=== PATIENT | female | born 1955 | race Asian ===

== ENCOUNTER 2018-02-03 18:48 | Emergency (ER) | payer BC ==
[~2018-02-03] VITALS: Ht 160 cm; Wt 54.4 kg
[~2018-02-03 18:48] MED LIST: LORAZEPAM0.5 MG PO
[2018-02-03 18:56] VITALS: Ht 160 cm; Wt 54.4 kg
[2018-02-03 20:08] VITALS: BP 111/80
== END 2018-02-03 20:08 | disposition home or self-care (01) ==
LOC: ED 18:48
DX: S01.81XA Laceration without foreign body of other part of head, initial encounter (principal); S09.90XA Unspecified injury of head, initial encounter; F03.90 Unspecified dementia, unspecified severity, without behavioral disturbance, psychotic disturbance, mood disturbance, and anxiety; W19.XXXA Unspecified fall, initial encounter; Y93.89 Activity, other specified; Y92.89 Other specified places as the place of occurrence of the external cause; Y99.8 Other external cause status